=== PATIENT | male | born 1965 | race Caucasian/White ===

== ENCOUNTER 2016-08-20 22:20 | Emergency (ER) | payer OTHER | END 2016-08-20 23:30 | disposition home or self-care (01) | LOC: ER 22:20 | DX: S41.012A Laceration without foreign body of left shoulder, initial encounter (principal); W25.XXXA Contact with sharp glass, initial encounter; Y92.019 Unspecified place in single-family (private) house as the place of occurrence of the external cause; Z88.0 Allergy status to penicillin; Z88.5 Allergy status to narcotic agent; Z79.02 Long term (current) use of antithrombotics/antiplatelets; Z79.01 Long term (current) use of anticoagulants; Z79.899 Other long term (current) drug therapy | CPT/HCPCS: 12002; 12004; 73000; 73030; 99070; 99283-25 ==

== ENCOUNTER 2016-08-24 18:38 | Emergency (ER) | payer OTHER | END 2016-08-24 20:38 | disposition home or self-care (01) | LOC: ER 18:38 | DX: M25.512 Pain in left shoulder (principal); W20.8XXA Other cause of strike by thrown, projected or falling object, initial encounter; Y92.009 Unspecified place in unspecified non-institutional (private) residence as the place of occurrence of the external cause; I48.91 Unspecified atrial fibrillation; F17.210 Nicotine dependence, cigarettes, uncomplicated; Z79.899 Other long term (current) drug therapy; Z79.01 Long term (current) use of anticoagulants; Z79.82 Long term (current) use of aspirin; Z88.0 Allergy status to penicillin; Z88.5 Allergy status to narcotic agent | CPT/HCPCS: 96372; 99282-25 ==

== ENCOUNTER 2016-08-27 16:37 | Emergency (ER) | payer OTHER | END 2016-08-27 17:14 | disposition home or self-care (01) | LOC: ER 16:37 | DX: Z48.02 Encounter for removal of sutures (principal); M25.512 Pain in left shoulder; Z88.0 Allergy status to penicillin; Z88.5 Allergy status to narcotic agent; Z79.899 Other long term (current) drug therapy; Z79.01 Long term (current) use of anticoagulants; Z79.82 Long term (current) use of aspirin | CPT/HCPCS: 99281 ==